=== PATIENT | female | born 1980 | race Caucasian/White ===

== ENCOUNTER 2019-11-03 11:00 | Emergency (ER) | payer SELFPAY ==
[~2019-11-03] VITALS: Ht 154.9 cm; Wt 73.0 kg
[2019-11-03 14:00] VITALS: BP 137/89
== END 2019-11-03 14:01 | disposition home or self-care (01) ==
LOC: ER 11:00
DX: Z76.0 Encounter for issue of repeat prescription (principal); F31.9 Bipolar disorder, unspecified; I10 Essential (primary) hypertension; Z59.0 Homelessness
CPT/HCPCS: 99283

== ENCOUNTER 2019-11-03 17:45 | Emergency (ER) | payer SELFPAY ==
[~2019-11-03] VITALS: Ht 165.1 cm; Wt 68.0 kg
[2019-11-03] MEDS ORDERED: ASPIRIN 81MG TABLET PO ONE (23:15)
[2019-11-04 00:16] LABS: BASOPHILS % 0.7 % (0.0-2.0); EOSINOPHILS % 1.5 % (0.0-5.0); HEMATOCRIT. 47.2 % (36.0-48.0); HEMOGLOBIN. 16.1 g/dL (12.0-16.0); LYMPHOCYTES % 26.7 % (20.0-50.0); MEAN CORPUSCULAR HEMOGLOBIN 30.1 pg (28.0-32.0); MEAN CORPUSCULAR VOLUME 88.5 fL (81.0-99.0); MEAN PLATELET VOLUME 7.5 fl (7.4-10.4); MONOCYTES % 6.9 % (2.0-8.0); NEUTROPHILS % 64.2 % (40.0-76.0); PLATELET 288 x1000/uL (130-400); RED BLOOD CELL COUNT 5.34 mill/uL (4.2-5.4); RED CELL DISTRIBUTION WIDTH 13.3 % (11.6-14.6)
[2019-11-04 00:18] LABS: CHLORIDE 106 mEq/L (98-107)
[2019-11-04 10:21] VITALS: BP 122/78
== END 2019-11-04 09:45 | disposition home or self-care (01) ==
LOC: ER 17:45
DX: R07.89 Other chest pain (principal); F31.9 Bipolar disorder, unspecified; F20.9 Schizophrenia, unspecified; I10 Essential (primary) hypertension; F12.10 Cannabis abuse, uncomplicated; F17.210 Nicotine dependence, cigarettes, uncomplicated; Z98.51 Tubal ligation status; Z75.1 Person awaiting admission to adequate facility elsewhere
CPT/HCPCS: 36415; 71045; 80053; 83880; 84484; 85025; 93005; 99283; Z7610

== ENCOUNTER 2020-12-27 10:54 | Emergency (ER) | payer MEDICAID ==
[~2020-12-27] VITALS: Ht 165.1 cm; Wt 91.0 kg
[2020-12-27 11:49] LABS: CLARITY URINE CLOUDY (CLEAR); COLOR URINE YELLOW (YELLOW); KETONES URINE 1+ (NEGATIVE); LEUKOCYTE ESTERASE URINE 3+ (NEGATIVE); NITRITE URINE NEGATIVE (NEGATIVE); OCCULT BLOOD URINE TRACE (NEGATIVE); PH URINE 5.5 (4.5-8.0); PROTEIN URINE NEGATIVE (NEGATIVE); SPECIFIC GRAVITY URINE 1.023 (1.005-1.030)
[2020-12-27] MEDS ORDERED: CEPH500T MT (12:49)
[2020-12-27] MEDS ORDERED: CEPHALEXIN 250MG CAPSULE PO SCH (13:00)
[2020-12-27 13:57] VITALS: BP 130/85
== END 2020-12-27 14:05 | disposition home or self-care (01) ==
LOC: ER 13:05
DX: F32.9 Major depressive disorder, single episode, unspecified (principal); F20.9 Schizophrenia, unspecified; F41.9 Anxiety disorder, unspecified; I10 Essential (primary) hypertension; F12.10 Cannabis abuse, uncomplicated; E78.00 Pure hypercholesterolemia, unspecified; Z98.51 Tubal ligation status
CPT/HCPCS: 81003; 99283

== ENCOUNTER 2020-12-30 15:58 | Emergency (ER) | payer MEDICAID ==
[~2020-12-30] VITALS: Ht 165.1 cm; Wt 68.0 kg
[~2020-12-30 15:58] MED LIST: CEPH500T MT
[2020-12-30] MEDS ORDERED: KETOROLAC 60MG/2ML VIAL IM ONE (16:15)
[2020-12-30] MEDS ORDERED: IBUP-2029 MT (17:02)
[2020-12-30 17:28] VITALS: BP 140/80
== END 2020-12-30 17:29 | disposition home or self-care (01) ==
LOC: ER 15:58
DX: M54.5 Low back pain (principal); I10 Essential (primary) hypertension; E78.00 Pure hypercholesterolemia, unspecified; F41.9 Anxiety disorder, unspecified; F31.9 Bipolar disorder, unspecified; F20.9 Schizophrenia, unspecified; Z98.51 Tubal ligation status
CPT/HCPCS: 99283

== ENCOUNTER 2022-06-26 13:14 | Emergency (ER) | payer MEDICAID, OTHER ==
[~2022-06-26] VITALS: Ht 165.1 cm; Wt 60.0 kg
[~2022-06-26 13:14] MED LIST changes: +IBUP-2029 MT
[2022-06-26 13:24] VITALS: BP 120/82
== END 2022-06-26 16:28 | disposition home or self-care (01) ==
LOC: ER 13:14
DX: S05.11XA Contusion of eyeball and orbital tissues, right eye, initial encounter (principal); E11.9 Type 2 diabetes mellitus without complications; F17.210 Nicotine dependence, cigarettes, uncomplicated; Z59.00 Homelessness unspecified; V03.90XA Pedestrian on foot injured in collision with car, pick-up truck or van, unspecified whether traffic or nontraffic accident, initial encounter; Y93.89 Activity, other specified; Y92.488 Other paved roadways as the place of occurrence of the external cause
CPT/HCPCS: 99284